=== PATIENT | male | born 1945 | race American Indian/Alaskan Native ===

== ENCOUNTER 2020-10-23 12:54 | Emergency (ER) | payer MEDICARE ==
--- NOTE | 2020-10-23 13:11 | Emergency Department Report ---
Blank Doc - Documentation Documentation: 75-year-old male that presents with chest pain, shortness of breath. 1- This is a initial triage assessment/medical screening only. Full assessment and work-up will be completed once the patient is in proper hospital gown, ED bed and in a private room setting. This initial assessment/diagnostic orders/clinical plan/ treatment(s) is/are subject to change based on pt's health status, clinical progression and re-assessment by fellow clinical providers in the ED. Further treatment and workup at subsequent clinical providers discretion. Patient/guardians urged not to elope from ED as their condition may be serious if not clinically assessed and managed. 2-cardiac workup
--- NOTE | 2020-10-23 13:44 | XRay Report ---
CHEST 2 VIEWS INDICATION / CLINICAL INFORMATION: Chest Pain. COMPARISON: None available. FINDINGS: SUPPORT DEVICES: None. HEART / MEDIASTINUM: No significant abnormality. LUNGS / PLEURA: No significant pulmonary or pleural abnormality. No pneumothorax. ADDITIONAL FINDINGS: No significant additional findings. IMPRESSION: 1. No acute findings. Signer Name: Noam Barry MD Signed: 10/23/2020 1:40 PM Workstation Name: [id number]
[2020-10-23 14:21] LABS: Bilirubin,Urine NEG (Negative); Blood,Urine NEG (Negative); Color,Urine Yellow (Yellow); Protein,Urine <15 mg/dL mg/dL (Negative); WBC,Urine < 1.0 /HPF (0.0-6.0)
[2020-10-23 14:24] LABS: Hematocrit 34.9 % (35.5-45.6); Hemoglobin 11.5 gm/dl (11.8-15.2); Mean Corpuscular HGB Conc 33 % (32-34); Mean Corpuscular Volume 83 fl (84-94); Platelet Count 118 K/mm3 (140-440); Red Blood Count 4.21 M/mm3 (3.65-5.03); Red Cell Distribution Width 14.2 % (13.2-15.2)
[2020-10-23 14:33] LABS: INR 1.01 (0.87-1.13)
[2020-10-23 14:35] LABS: Partial Thromboplastin Time 32.4 Sec. (24.2-36.6)
[2020-10-23 14:44] LABS: Alanine Aminotransferase 35 units/L (7-56); Albumin 3.4 g/dL (3.9-5); BUN/Creatinine Ratio 11; Blood Urea Nitrogen 11 mg/dL (9-20); Calcium 9.1 mg/dL (8.4-10.2); Hemolysis Index 3
[2020-10-23 15:10] LABS: Total Cells Counted 100
[2020-10-23 15:14] LABS: Platelet Estimate Consistent w Auto; RBC Morphology Normal
[2020-10-23] MEDS ORDERED: BENZONATATE 100 MG CAP PO ONE (16:44)
--- NOTE | 2020-10-23 17:00 | Emergency Department Report ---
- General Chief Complaint: Dyspnea/Respdistress Stated Complaint: SOB/ PNEUMONIA Time Seen by Provider: 10/23/20 13:06 Source: patient Mode of arrival: Ambulatory Limitations: No Limitations - History of Present Illness Initial Comments: Patient is a 75-year-old F Indonesian male with past medical history of hypertension diabetes who is presenting with 2 days of increased cough and congestion. Patient states his cough is productive of yellow sputum. Mild shortness of breath with exertion. States he has body aches but denies nausea vomiting diarrhea headache neck stiffness or sore throat. Patient took his second dose of the [place] COVID-19 vaccine approximately 1 week ago. Patient states he felt weak and fatigued for 2 days after receiving the shot then began feeling well until 2 days ago when his cough developed. Patient has had some subjective chills but no documented fever. Patient states he feels as though he may have pneumonia as he has had pneumonia at least 3 times in the past several years. - Related Data Allergies Allergy/AdvReac Type Severity Reaction Status Date / Time ibuprofen Allergy Shortness Verified 10/23/20 12:58 of Breath ED Review of Systems ROS: Stated complaint: SOB/ PNEUMONIA Other details as noted in HPI Comment: All other systems reviewed and negative ED Past Medical Hx - Past Medical History Hx Hypertension: Yes Hx Diabetes: Yes Hx Asthma: Yes Additional medical history: PNEUMONIA X3 - Surgical History Additional Surgical History: ROTATOR CUFF/ BACK/ KNEE REPLACEMENT - Social History Smoking Status: Current Every Day Smoker Substance Use Type: None ED Physical Exam - General Limitations: No Limitations General appearance: alert, in no apparent distress - Head Head exam: Present: atraumatic, normocephalic - Eye Eye exam: Present: normal appearance - ENT ENT exam: Present: mucous membranes moist - Neck Neck exam: Present: normal inspection - Respiratory Respiratory exam: Present: normal lung sounds bilaterally, rhonchi (Fine rhonchi diffuse which does clear after several deep breaths). Absent: respiratory distress, wheezes, rales - Cardiovascular Cardiovascular Exam: Present: regular rate, normal rhythm, normal heart sounds. Absent: systolic murmur, diastolic murmur, rubs, gallop - GI/Abdominal GI/Abdominal exam: Present: soft, normal bowel sounds. Absent: distended, tenderness, guarding, rebound - Rectal Rectal exam: Present: deferred - Extremities Exam Extremities exam: Present: normal inspection - Back Exam Back exam: Present: normal inspection - Neurological Exam Neurological exam: Present: alert, oriented X3 - Psychiatric Psychiatric exam: Present: normal affect, normal mood - Skin Skin exam: Present: warm, dry, intact, normal color. Absent: rash ED Course Vital Signs 10/23/20 10/23/20 10/23/20 13:01 16:46 16:50 Temperature 98.5 F Pulse Rate 92 H 80 Respiratory 20 18 19 Rate Blood Pressure 131/74 132/73 O2 Sat by Pulse 99 100 Oximetry ED Medical Decision Making - Lab Data Result diagrams: 10/23/20 13:11 10/23/20 13:11 Lab Results 10/23/20 10/23/20 10/23/20 Range/Units 13:11 13:11 13:11 WBC 4.9 (4.5-11.0) K/mm3 RBC 4.21 (3.65-5.03) M/mm3 Hgb 11.5 L (11.8-15.2) gm/dl Hct 34.9 L (35.5-45.6) % MCV 83 L (84-94) fl MCH 28 (28-32) pg MCHC 33 (32-34) % RDW 14.2 (13.2-15.2) % Plt Count 118 L (140-440) K/mm3 Jerome % (Auto) Line Closer Add Manual Diff Complete Total Counted 100 Seg Neuts % (Manual) 56.0 (40.0-70.0) % Band Neutrophils % 1.0 % Lymphocytes % (Manual) 16.0 (13.4-35.0) % Monocytes % (Manual) 11.0 H (0.0-7.3) % Eosinophils % (Manual) 16.0 H (0.0-4.3) % Nucleated RBC % Not Reportable Seg Neutrophils # Man 2.7 (1.8-7.7) K/mm3 Band Neutrophils # 0.0 K/mm3 Lymphocytes # (Manual) 0.8 L (1.2-5.4) K/mm3 Abs React Lymphs (Man) 0.0 K/mm3 Monocytes # (Manual) 0.5 (0.0-0.8) K/mm3 Eosinophils # (Manual) 0.8 H (0.0-0.4) K/mm3 Basophils # (Manual) 0.0 (0.0-0.1) K/mm3 Metamyelocytes # 0.0 K/mm3 Myelocytes # 0.0 K/mm3 Promyelocytes # 0.0 K/mm3 Blast Cells # 0.0 K/mm3 WBC Morphology Not Reportable Hypersegmented Neuts Not Reportable Hyposegmented Neuts Not Reportable Hypogranular Neuts Not Reportable Smudge Cells Not Reportable Toxic Granulation Not Reportable Toxic Vacuolation Not Reportable Dohle Bodies Not Reportable Pelger-Huet Anomaly Not Reportable [place] Rods Not Reportable Platelet Estimate Consistent w auto Clumped Platelets Not Reportable Plt Clumps, EDTA Not Reportable Large Platelets Not Reportable Giant Platelets Not Reportable Platelet Satelliting Not Reportable Plt Morphology Comment Not Reportable RBC Morphology Normal Dimorphic RBCs Not Reportable Polychromasia Not Reportable Hypochromasia Not Reportable Poikilocytosis Not Reportable Anisocytosis Not Reportable Microcytosis Not Reportable Macrocytosis Not Reportable Spherocytes Not Reportable Pappenheimer Bodies Not Reportable Sickle Cells Not Reportable Target Cells Not Reportable Tear Drop Cells Not Reportable Ovalocytes Not Reportable Helmet Cells Not Reportable Mejia-Kings Bodies Not Reportable Hemet Rings Not Reportable Lora Cells Not Reportable Bite Cells Not Reportable Crenated Cell Not Reportable Elliptocytes Not Reportable Acanthocytes (Spur) Not Reportable Rouleaux Not Reportable Hemoglobin C Crystals Not Reportable Schistocytes Not Reportable Malaria parasites Not Reportable Alan Bodies Not Reportable Hem Pathologist Commnt No PT 13.9 (12.2-14.9) Sec. INR 1.01 (0.87-1.13) APTT 32.4 (24.2-36.6) Sec. Sodium 137 (137-145) mmol/L Potassium 4.4 (3.6-5.0) mmol/L Chloride 103.6 (98-107) mmol/L Carbon Dioxide 22 (22-30) mmol/L Anion Gap 16 mmol/L BUN 11 (9-20) mg/dL Creatinine 1.0 (0.8-1.3) mg/dL Estimated GFR > 60 ml/min BUN/Creatinine Ratio 11 % Glucose 151 H (75-100) mg/dL Calcium 9.1 (8.4-10.2) mg/dL Magnesium 1.60 L (1.7-2.3) mg/dL Total Bilirubin 0.40 (0.1-1.2) mg/dL AST 43 H (5-40) units/L ALT 35 (7-56) units/L Alkaline Phosphatase 120 (35-129) units/L Troponin T < 0.010 (0.00-0.029) ng/mL NT-Pro-B Natriuret Pep 267.7 (0-900) pg/mL Total Protein 8.0 (6.3-8.2) g/dL Albumin 3.4 L (3.9-5) g/dL Albumin/Globulin Ratio 0.7 % Urine Color (Yellow) Urine Turbidity (Clear) Urine pH (5.0-7.0) Ur Specific [place] (1.003-1.030) Urine Protein (Negative) mg/dL Urine Glucose (UA) (Negative) mg/dL Urine Ketones (Negative) mg/dL Urine Blood (Negative) Urine Nitrite (Negative) Urine Bilirubin (Negative) Urine Urobilinogen (<2.0) mg/dL Ur Leukocyte Esterase (Negative) Urine WBC (Auto) (0.0-6.0) /HPF Urine RBC (Auto) (0.0-6.0) /HPF 10/23/20 Range/Units Unknown WBC (4.5-11.0) K/mm3 RBC (3.65-5.03) M/mm3 Hgb (11.8-15.2) gm/dl Hct (35.5-45.6) % MCV (84-94) fl MCH (28-32) pg MCHC (32-34) % RDW (13.2-15.2) % Plt Count (140-440) K/mm3 Jerome % (Auto) Add Manual Diff Total Counted Seg Neuts % (Manual) (40.0-70.0) % Band Neutrophils % % Lymphocytes % (Manual) (13.4-35.0) % Monocytes % (Manual) (0.0-7.3) % Eosinophils % (Manual) (0.0-4.3) % Nucleated RBC % Seg Neutrophils # Man (1.8-7.7) K/mm3 Band Neutrophils # K/mm3 Lymphocytes # (Manual) (1.2-5.4) K/mm3 Abs React Lymphs (Man) K/mm3 Monocytes # (Manual) (0.0-0.8) K/mm3 Eosinophils # (Manual) (0.0-0.4) K/mm3 Basophils # (Manual) (0.0-0.1) K/mm3 Metamyelocytes # K/mm3 Myelocytes # K/mm3 Promyelocytes # K/mm3 Blast Cells # K/mm3 WBC Morphology Hypersegmented Neuts Hyposegmented Neuts Hypogranular Neuts Smudge Cells Toxic Granulation Toxic Vacuolation Dohle Bodies Pelger-Huet Anomaly Acosta Rods Platelet Estimate Clumped Platelets Plt Clumps, EDTA Large Platelets Giant Platelets Platelet Satelliting Plt Morphology Comment RBC Morphology Dimorphic RBCs Polychromasia Hypochromasia Poikilocytosis Anisocytosis Microcytosis Macrocytosis Spherocytes Pappenheimer Bodies Sickle Cells Target Cells Tear Drop Cells Ovalocytes Helmet Cells Mejia-Kings Bodies Hemet Rings Grannis Cells Bite Cells Crenated Cell Elliptocytes Acanthocytes (Spur) Rouleaux Hemoglobin C Crystals Schistocytes Malaria parasites Alan Bodies Hem Pathologist Commnt PT (12.2-14.9) Sec. INR (0.87-1.13) APTT (24.2-36.6) Sec. Sodium (137-145) mmol/L Potassium (3.6-5.0) mmol/L Chloride (98-107) mmol/L Carbon Dioxide (22-30) mmol/L Anion Gap mmol/L BUN (9-20) mg/dL Creatinine (0.8-1.3) mg/dL Estimated GFR ml/min BUN/Creatinine Ratio % Glucose (75-100) mg/dL Calcium (8.4-10.2) mg/dL Magnesium (1.7-2.3) mg/dL Total Bilirubin (0.1-1.2) mg/dL AST (5-40) units/L ALT (7-56) units/L Alkaline Phosphatase (35-129) units/L Troponin T (0.00-0.029) ng/mL NT-Pro-B Natriuret Pep (0-900) pg/mL Total Protein (6.3-8.2) g/dL Albumin (3.9-5) g/dL Albumin/Globulin Ratio % Urine Color Yellow (Yellow) Urine Turbidity Clear (Clear) Urine pH 6.0 (5.0-7.0) Ur Specific [place] 1.016 (1.003-1.030) Urine Protein <15 mg/dl (Negative) mg/dL Urine Glucose (UA) Neg (Negative) mg/dL Urine Ketones Neg (Negative) mg/dL Urine Blood Neg (Negative) Urine Nitrite Neg (Negative) Urine Bilirubin Neg (Negative) Urine Urobilinogen 2.0 (<2.0) mg/dL Ur Leukocyte Esterase Neg (Negative) Urine WBC (Auto) < 1.0 (0.0-6.0) /HPF Urine RBC (Auto) 1.0 (0.0-6.0) /HPF - Radiology Data Radiology results: report reviewed, image reviewed (Agree with the interpretation of the chest x-ray) [facility] [address] [place] [address] XRay Report Signed Patient: MARGO GALVEZ MR#: [id number] : 1945 Acct:[id number] Age/Sex: 75 / M ADM Date: 10/23/20 Loc: ED Attending Dr: Ordering Physician: JILL NETTLES NP Date of Service: 10/23/20 Procedure(s): XR chest routine 2V Accession Number(s): [id number] cc: JILL NETTLES NP Fluoro Time In Minutes: CHEST 2 VIEWS INDICATION / CLINICAL INFORMATION: Chest Pain. COMPARISON: None available. FINDINGS: SUPPORT DEVICES: None. HEART / MEDIASTINUM: No significant abnormality. LUNGS / PLEURA: No significant pulmonary or pleural abnormality. No pneumothorax. ADDITIONAL FINDINGS: No significant additional findings. IMPRESSION: 1. No acute findings. Signer Name: Noam Barry MD Signed: 10/23/2020 1:40 PM Workstation Name: [id number] - Medical Decision Making Patient is a 75-year-old F Indonesian male is presenting with cough cold congestion. Patient states he has some mild shortness of breath however his O2 sats were in the upper 90s throughout his stay even with ambulation. Patient likely with an acute bronchitis. It is still possible the patient has COVID-19 and has been encouraged to get outpatient COVID-19 test. Patient given medication for symptomatic relief but appears stable for discharge. Critical care attestation.: If time is entered above; I have spent that time in minutes in the direct care of this critically ill patient, excluding procedure time. ED Disposition Clinical Impression: Acute bronchitis Disposition: DC-01 TO HOME OR SELFCARE Is pt being admited?: No Does the pt Need Aspirin: No Condition: Stable Instructions: Acute Bronchitis (ED), Acute Bronchitis, Adult, [id number] Additional Instructions: Because it has not been 2 weeks since your second dose of the COVID-19 vaccine it is still possible that your illness is secondary to COVID-19. Please follow- up with a local urgent care your primary care physician to get outpatient COVID- 19 testing. Please quarantine until results return. Medications for symptomatic relief have been prescribed for you. Please buy a home pulse oximeter (a picture has been included in your paperwork). Please return if your oxygen level is less than 90%. Referrals: PRIMARY CARE, [Primary Care Provider] - 3-5 Days Time of Disposition: 17:21
[2020-10-23 18:03] VITALS: BP 143/77
--- NOTE | 2020-10-24 10:36 | Electrocardiograph Report ---
[facility] Test Date: 2020-10-23 Test Time: 13:07:29 Pat Name: MARGO GALVEZ Department: Room: Gender: M [employer] Manager: KASEY PRUITTB: 1945 Requested By: ED DOC Order Number: [id number] Reading MD: Kimberley Doll Measurements Intervals [place] Rate: 93 P: 82 NM: 171 QRS: 27 QRSD: 76 T: 59 QT: 326 QTc: 406 Interpretive Statements Sinus rhythm No previous ECG available for comparison Electronically Signed On 10-24-2020 10:35:31 EDT by Kimberley Doll
== END 2020-10-23 17:45 | disposition home or self-care (01) ==
LOC: ED 12:54
DX: J20.9 Acute bronchitis, unspecified (principal); I10 Essential (primary) hypertension; E11.9 Type 2 diabetes mellitus without complications; F17.200 Nicotine dependence, unspecified, uncomplicated; Z98.890 Other specified postprocedural states; Z88.6 Allergy status to analgesic agent
CPT/HCPCS: 36415; 71046; 80053; 81001; 83735; 83880; 84484; 85007; 85025; 85610; 85730; 93005

== ENCOUNTER 2021-03-28 12:02 | Emergency (ER) | payer MEDICARE ==
[2021-03-28] MEDS ORDERED: HYDROcodone/ACETAMINOPHEN 5-325 MG TAB PO ONE (13:57)
--- NOTE | 2021-03-28 14:00 | XRay Report ---
LEFT TIBIA-FIBULA 2 VIEW(S) INDICATION / CLINICAL INFORMATION: pain after fall COMPARISON: None available. FINDINGS: BONES / JOINT(S): No acute fracture or subluxation. There is mild degenerative change in the ankle mane int. SOFT TISSUES: No significant abnormality. ADDITIONAL FINDINGS: None. Signer Name: Michael Gonzales MD Signed: 03/28/2021 1:56 PM Workstation Name: [id number]
--- NOTE | 2021-03-28 14:00 | XRay Report ---
LEFT KNEE 4 VIEW(S) INDICATION / CLINICAL INFORMATION: pain after fall COMPARISON: None available. FINDINGS: BONES / JOINT(S): There is a right total knee arthroplasty. The patella appears to be displaced infer iorly. This is nonspecific but could indicate quadriceps tendon injury. SOFT TISSUES: No significant abnormality. ADDITIONAL FINDINGS: None. Signer Name: Michael Gonzales MD Signed: 03/28/2021 1:55 PM Workstation Name: [id number]
--- NOTE | 2021-03-28 14:01 | XRay Report ---
RIGHT SHOULDER 3 VIEW(S) INDICATION / CLINICAL INFORMATION: pain after fall COMPARISON: None available. FINDINGS: BONES / JOINT(S): No acute fracture or subluxation. There is relatively advanced degenerative change of the glenohumeral joint. SOFT TISSUES: No significant abnormality. ADDITIONAL FINDINGS: None. Signer Name: Michael Gonzales MD Signed: 03/28/2021 1:57 PM Workstation Name: [id number]
--- NOTE | 2021-03-28 14:02 | Emergency Department Report ---
ED General Adult HPI - General Chief complaint: Fall Stated complaint: SHOULDER PAIN AND LEG Time Seen by Provider: 03/28/21 12:46 Source: patient Mode of arrival: Ambulatory Limitations: No Limitations - History of Present Illness Initial comments: 75-year-old -[place] male patient presents with complaints of left knee and right shoulder pain after a slip and fall injury yesterday. Patient states he was dancing and slipped and fell. He denies any head trauma, loss of consciousness, chest pain, shortness of breath, or preceding symptoms. Patient has history of a left knee replacement and a right shoulder surgery. He denies any numbness/tingling/weakness in his limbs. Pain in the knee worsens with ambulation and to touch - Related Data Previous Rx's Medication Instructions Recorded Last Taken Type Albuterol Mdi (or & Nicu Only) 2 puff IH QID PRN #1 inhalation 10/23/20 Unknown Rx [ProAir HFA Inhaler] Benzonatate [Tessalon Perles] 100 mg PO Q8HR #10 capsule 10/23/20 Unknown Rx HYDROcodone/APAP 5-325 [[place] 1 each PO Q6HR PRN #14 tablet 10/23/20 Unknown Rx 5/325] predniSONE [Deltasone] 50 mg PO QDAY #5 tab 10/23/20 Unknown Rx HYDROcodone/APAP 5-325 [[place] 1 each PO Q6HR PRN #15 tablet 03/28/21 Unknown Rx 5-325 mg TAB] Allergies Allergy/AdvReac Type Severity Reaction Status Date / Time ibuprofen Allergy Shortness Verified 10/23/20 12:58 of Breath ED Review of Systems ROS: Stated complaint: SHOULDER PAIN AND LEG Other details as noted in HPI Constitutional: denies: diaphoresis, malaise, weakness Respiratory: denies: cough, shortness of breath Cardiovascular: denies: chest pain Gastrointestinal: denies: abdominal pain Musculoskeletal: joint swelling, arthralgia Skin: denies: change in color Neurological: denies: numbness, paresthesias Hematological/Lymphatic: denies: swollen glands ED Past Medical Hx - Past Medical History Hx Hypertension: Yes Hx Diabetes: Yes Hx Asthma: Yes Additional medical history: PNEUMONIA X3 - Surgical History Additional Surgical History: ROTATOR CUFF/ BACK/ KNEE REPLACEMENT - Social History Smoking Status: Current Every Day Smoker Substance Use Type: None - Medications Home Medications: Home Medications Medication Instructions Recorded Confirmed Last Taken Type Albuterol Mdi (or & Nicu Only) 2 puff IH QID PRN #1 inhalation 10/23/20 Unknown Rx [ProAir HFA Inhaler] Benzonatate [Tessalon Perles] 100 mg PO Q8HR #10 capsule 10/23/20 Unknown Rx HYDROcodone/APAP 5-325 [[place] 1 each PO Q6HR PRN #14 tablet 10/23/20 Unknown Rx 5/325] predniSONE [Deltasone] 50 mg PO QDAY #5 tab 10/23/20 Unknown Rx HYDROcodone/APAP 5-325 [[place] 1 each PO Q6HR PRN #15 tablet 03/28/21 Unknown Rx 5-325 mg TAB] ED Physical Exam - General Limitations: No Limitations General appearance: alert, in no apparent distress - Head Head exam: Present: atraumatic, normocephalic - Eye Eye exam: Present: normal appearance - Respiratory Respiratory exam: Absent: respiratory distress - Cardiovascular Cardiovascular Exam: Present: regular rate - Extremities Exam Extremities exam: Present: other (Tenderness palpation noted to right humeral head without obvious deformity; patient has full range of motion of the right shoulder) - Expanded Lower Extremity Exam Left Knee exam: Present: full ROM, tenderness, swelling (Mild). Absent: deformity, erythema Lower Leg exam: Present: normal inspection Neuro vascular tendon exam: Present: no vascular compromise. Absent: pulse deficit Gait: Negative: observed and normal (Patient ambulates via cane) - Neurological Exam Neurological exam: Present: alert, oriented X3 - Psychiatric Psychiatric exam: Present: normal affect, normal mood - Skin Skin exam: Present: warm, dry, intact, normal color. Absent: rash ED Course Vital Signs 03/28/21 12:10 Temperature 97.9 F Pulse Rate 62 Respiratory 18 Rate Blood Pressure 135/69 O2 Sat by Pulse 99 Oximetry ED Medical Decision Making - Radiology Data Radiology results: report reviewed LEFT TIBIA-FIBULA 2 VIEW(S) INDICATION / CLINICAL INFORMATION: pain after fall COMPARISON: None available. FINDINGS: BONES / JOINT(S): No acute fracture or subluxation. There is mild degenerative change in the ankle joint. SOFT TISSUES: No significant abnormality. ADDITIONAL FINDINGS: None. LEFT KNEE 4 VIEW(S) INDICATION / CLINICAL INFORMATION: pain after fall COMPARISON: None available. FINDINGS: BONES / JOINT(S): There is a right total knee arthroplasty. The patella appears to be displaced inferiorly. This is nonspecific but could indicate quadriceps tendon injury. SOFT TISSUES: No significant abnormality. ADDITIONAL FINDINGS: None. RIGHT SHOULDER 3 VIEW(S) INDICATION / CLINICAL INFORMATION: pain after fall COMPARISON: None available. FINDINGS: BONES / JOINT(S): No acute fracture or subluxation. There is relatively advanced degenerative change of the glenohumeral joint. SOFT TISSUES: No significant abnormality. ADDITIONAL FINDINGS: None. RIGHT SHOULDER 3 VIEW(S) INDICATION / CLINICAL INFORMATION: pain after fall COMPARISON: None available. FINDINGS: BONES / JOINT(S): No acute fracture or subluxation. There is relatively advanced degenerative change of the glenohumeral joint. SOFT TISSUES: No significant abnormality. ADDITIONAL FINDINGS: None. - Medical Decision Making 75-year-old -[place] male patient presents with complaints of left knee and right shoulder pain after a slip and fall injury yesterday. Patient states he was dancing and slipped and fell. He denies any head trauma, loss of consciousness, chest pain, shortness of breath, or preceding symptoms. Patient has history of a left knee replacement and a right shoulder surgery. He denies any numbness/tingling/weakness in his limbs. Pain in the knee worsens with ambulation and to touch X-ray shows possible inferior dislocation of the patella no obvious deformities of the knee are noted. Discussed patient with Dr. Eason-recommends knee brace and crutches and follow-up first thing morning with Ortho. Discussed findings with patient, care plan, and signs and symptoms that should prompt immediate return to the ED, he verbalizes understanding. Critical care attestation.: If time is entered above; I have spent that time in minutes in the direct care of this critically ill patient, excluding procedure time. ED Disposition Clinical Impression: Knee injury Disposition: HOME / SELF CARE / HOMELESS Is pt being admited?: No Condition: Stable Instructions: Patellar Dislocation, [id number] Prescriptions: HYDROcodone/APAP 5-325 [[place] 5-325 mg TAB] 1 each PO Q6HR PRN #15 tablet PRN Reason: Pain Referrals: JANNA BURRELL MD [Staff Physician] - 03/30/21 [facility] [Provider Group] - 03/30/21
[2021-03-28 15:03] VITALS: BP 138/42
== END 2021-03-28 15:03 | disposition home or self-care (01) ==
LOC: ED 12:02
DX: S89.92XA Unspecified injury of left lower leg, initial encounter (principal); I10 Essential (primary) hypertension; F17.200 Nicotine dependence, unspecified, uncomplicated; J45.909 Unspecified asthma, uncomplicated; E11.8 Type 2 diabetes mellitus with unspecified complications; Z88.6 Allergy status to analgesic agent; W01.0XXA Fall on same level from slipping, tripping and stumbling without subsequent striking against object, initial encounter; Y93.89 Activity, other specified; Y92.89 Other specified places as the place of occurrence of the external cause; Y99.8 Other external cause status
CPT/HCPCS: 99283